=== PATIENT | female | born 1995 | race Caucasian/White ===

== ENCOUNTER 2016-05-20 15:19 | Emergency (ER) | payer OTHER ==
[~2016-05-20] VITALS: Ht 160 cm; Wt 70.0 kg
[~2016-05-20 15:19] MED LIST: [UNRECOGNIZED DRUG - OTHER] SQ
[2016-05-20 15:22] VITALS: BP 124/82; PULSE 122; RESP 16; TEMP 98.3; O2SAT 96
[2016-05-20] MEDS ORDERED: LORazepam 2 MG/ML VIAL IM ONE (15:45)
--- NOTE | 2016-05-20 15:49 | PD ---
HPI Chief Complaint: Seizure Time Seen by Provider: 15:44 Travel History International Travel<30 days: No Contact w/Intl Traveler<30days: No Traveled to known affect area: No History of Present Illness HPI Patient presents with possible seizure. 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 history of diabetes. She does not take any antiseizure medication. Reports that her last seizure was approximately 15 years ago. Denies any trauma. Denies any new chest pain shortness of breath urinary or bowel symptoms. Denies any nausea vomiting diarrhea or fever. Denies . No new rashes. PFSH Past Medical History Autoimmune Disease: Yes Blood Disorders: No Anxiety: No Depression: No Cardiovascular Problems: No Diabetes: Yes Diminished Hearing: No Gastrointestinal Disorders: Yes (CELIAC DISEASE) Genitourinary: No Musculoskeletal: No Neurologic: Yes Psychiatric: No Reproductive: No Respiratory: No Immunizations Current: Yes Migraines: Yes Sickle Cell Disease: No Past Surgical History Genitourinary Surgery: Yes (ENDOSCOPY AND MULTIPLE BIOPSY) Insulin Pump: Yes Other Surgery: Yes Social History Alcohol Use: No Tobacco Use: No Substance Use: No Allergies-Medications (Allergen,Severity, Reaction): Coded Allergies: Barley (Verified Allergy, Severe, CELIAC DISEASE, 05/20/16) Oat (Verified Allergy, Severe, CELIAC DISEASE, 05/20/16) Gile (Verified Allergy, Severe, CELIAC DISEASE, 05/20/16) Wheat (Verified Allergy, Severe, CELIAC DISEASE, 05/20/16) Reported Meds & Prescriptions Reported Meds & Active Scripts Active Macrobid (Nitrofurantoin Monoh/Nitrofur Macro) 100 Mg Cap 100 Mg PO BID 5 Days Reported [humalog via pump] Unit SQ DIRECTED from 0000- 0330= 0.8 units/hr from 0330- 0600= 1.05 units/hr from 0600- 0900= 0.85 units/hr from 0900- 1700= 0.8 units/hr from 1700- 0000= 0.75 units/hr This is what patient's implanted insulin pump is set at per mother Review of Systems General / Constitutional: No: Fever Eyes: No: Visual changes HENT: No: Headaches Cardiovascular: No: Chest Pain or Discomfort Respiratory: No: Shortness of Breath Gastrointestinal: No: Abdominal Pain Genitourinary: No: Dysuria Musculoskeletal: No: Pain Skin: No Rash Neurologic: No: Weakness Psychiatric: No: Depression Endocrine: No: Polydipsia Hematologic/Lymphatic: No: Easy Bruising Physical Exam Narrative GENERAL: Well-nourished, well-developed patient. SKIN: Focused skin assessment warm/dry. HEAD: Normocephalic. EYES: No scleral icterus. No injection or drainage. NECK: Supple, trachea midline. No JVD or lymphadenopathy. CARDIOVASCULAR: Regular rate and rhythm without murmurs, gallops, or rubs. RESPIRATORY: Breath sounds equal bilaterally. No accessory muscle use. GASTROINTESTINAL: Abdomen soft, non-tender, nondistended. MUSCULOSKELETAL: No cyanosis, or edema. BACK: Nontender without obvious deformity. No CVA tenderness. Data Data Last Documented VS Vital Signs Date Time Temp Pulse Resp B/P Pulse Ox O2 Delivery O2 Flow Rate FiO2 05/20/16 18:50 98 18 117/53 98 Room Air 05/20/16 15:[address] Brain W/O Iv Contrast(Rout) (05/20/16 ) Blood Glucose (05/20/16 15:44) Lorazepam Inj (Ativan Inj) (05/20/16 15:45) Complete Blood Count With Diff (05/20/16 15:49) Alcohol (Ethanol) (05/20/16 15:49) Drug Screen, Random Urine (05/20/16 15:49) Ecg Monitoring (05/20/16 15:49) Iv Access Insert/Monitor (05/20/16 15:49) Oximetry (05/20/16 15:49) Comprehensive Metabolic Panel (05/20/16 15:49) Sodium Chloride 0.9% Flush (Ns Flush) (05/20/16 16:00) Urinalysis - C+S If Indicated (05/20/16 15:49) Ed Urine Pregnancytest Poc (05/20/16 16:08) Acetaminophen (Tylenol) (05/20/16 16:45) Sodium Chlor 0.9% 1000 Ml Inj (Ns 1000 M (05/20/16 16:45) Urine Culture (05/20/16 16:20) Ceftriaxone Inj (Rocephin Inj) (05/20/16 17:00) Labs Laboratory Tests Test 05/20/16 05/20/16 15:50 16:20 White Blood Count 5.2 TH/MM3 Red Blood Count 4.71 MIL/MM3 Hemoglobin 14.2 GM/DL Hematocrit 41.8 % Mean Corpuscular Volume 88.6 FL Mean Corpuscular Hemoglobin 30.1 PG Mean Corpuscular Hemoglobin 33.9 % Concent Red Cell Distribution Width 11.9 % Platelet Count 314 TH/MM3 Mean Platelet Volume 8.6 FL Neutrophils (%) (Auto) 70.1 % Lymphocytes (%) (Auto) 22.9 % Monocytes (%) (Auto) 5.6 % Eosinophils (%) (Auto) 0.7 % Basophils (%) (Auto) 0.7 % Neutrophils # (Auto) 3.7 TH/MM3 Lymphocytes # (Auto) 1.2 TH/MM3 Monocytes # (Auto) 0.3 TH/MM3 Eosinophils # (Auto) 0.0 TH/MM3 Basophils # (Auto) 0.0 TH/MM3 CBC Comment DIFF FINAL Differential Comment Sodium Level 143 MEQ/L Potassium Level 3.4 MEQ/L Chloride Level 107 MEQ/L Carbon Dioxide Level 23.7 MEQ/L Anion Gap 12 MEQ/L Blood Urea Nitrogen 11 MG/DL Creatinine 0.77 MG/DL Estimat Glomerular Filtration 96 ML/MIN Rate Random Glucose 57 MG/DL Calcium Level 9.5 MG/DL Total Bilirubin 0.4 MG/DL Aspartate Amino Transf 12 U/L (AST/SGOT) Alanine Aminotransferase 21 U/L (ALT/SGPT) Alkaline Phosphatase 82 U/L Total Protein 7.6 GM/DL Albumin 4.3 GM/DL Ethyl Alcohol Level LESS THAN 3 MG/DL Urine Collection Type CLEAN CATCH Urine Color YELLOW Urine Turbidity SLIGHT Urine pH 5.5 Urine Specific [place] 1.027 Urine Protein 100 mg/dL Urine Glucose (UA) 500 mg/dL Urine Ketones NEG mg/dL Urine Occult Blood LARGE Urine Nitrite NEG Urine Bilirubin NEG Urine Leukocyte Esterase NEG Urine RBC 25-49 /hpf Urine WBC 0-2 /hpf Urine Squamous Epithelial > 8 /hpf Cells Urine Transitional Epithelial 0-5 /hpf Cells Urine Amorphous Sediment MOD Urine Bacteria MANY /hpf Urine Hyaline Casts 0-2 /lpf Microscopic Urinalysis Comment CULTURE INDICATED Urine Collection Time 1620 Urine Opiates Screen NEG Urine Barbiturates Screen NEG Urine Amphetamines Screen NEG Urine Benzodiazepines Screen NEG Urine Cocaine Screen NEG Urine Cannabinoids Screen NEG MDM Medical Decision Making Medical Screen Exam Complete: Yes Emergency Medical Condition: Yes Differential Diagnosis Hypoglycemia, seizure, syncope Narrative Course Assessment and plan discussed with patient and mother bedside. Physician Communication Physician Communication Case discussed with Dr. Matos and care transferred Scripts Nitrofurantoin Monohydrate Macrocrystals (Macrobid)100 Mg [id number] Mg PO BID 5 Days Ref 0 Prov:Luis Matos MD 05/20/16 Ruben Jeong MD May 20, 2016 15:49
[2016-05-20] MEDS ORDERED: SODIUM CHLORIDE 0.9% FLUSH 10 ML FLUSH IVF PRN (16:00)
[2016-05-20 16:09] LABS: AUTOMATED NEUTROPHIL # 3.7 TH/MM3 (1.8-7.7); BASOPHIL % 0.7 % (0.0-2.0); EOSINOPHIL % 0.7 % (0.0-4.0); HEMATOCRIT 41.8 % (35.0-46.0); HEMO FLAGS DIFF FINAL; LYMPH % 22.9 % (9.0-44.0); LYMPHOCYTE # 1.2 TH/MM3 (1.0-4.8); MEAN CELL VOLUME 88.6 FL (80.0-100.0); MEAN CORPUSCULAR HEMOGLOBIN 30.1 PG (27.0-34.0); MEAN CORPUSCULAR HGB CONC 33.9 % (32.0-36.0); MONO % 5.6 % (0.0-8.0); NEUT % 70.1 % (16.0-70.0); PLATELET COUNT 314 TH/MM3 (150-450); RED BLOOD COUNT 4.71 MIL/MM3 (4.00-5.30); RED CELL DISTRIBUTION WIDTH 11.9 % (11.6-17.2); WHITE BLOOD COUNT 5.2 TH/MM3 (4.0-11.0)
[2016-05-20 16:17] LABS: CHLORIDE 107 MEQ/L (98-107); POTASSIUM 3.4 MEQ/L (3.5-5.1); SODIUM (NA) 143 MEQ/L (136-145)
[2016-05-20 16:21] LABS: ANION GAP 12 MEQ/L (5-15); BICARBONATE 23.7 MEQ/L (21.0-32.0); BLOOD UREA NITROGEN 11 MG/DL (7-18)
[2016-05-20 16:24] LABS: ALT (GPT) 21 U/L (9-42); AST (GOT) 12 U/L (16-38); GLOMERULAR FILTRATION RATE 96 ML/MIN (>89)
[2016-05-20 16:25] LABS: TOTAL BILIRUBIN ADULT 0.4 MG/DL (0.2-1.0)
[2016-05-20 16:27] LABS: ALKALINE PHOSPHATASE 82 U/L (45-117)
--- NOTE | 2016-05-20 16:27 | RADHPO ---
EXAM DATE/TIME: 05/20/2016 16:08 [facility] COMPARISON: No previous studies available for comparison. INDICATIONS : Seizure. RADIATION DOSE: 63.96 CTDIvol (mGy) MEDICAL HISTORY : None SURGICAL HISTORY : None. ENCOUNTER: Initial ACUITY: 1 day PAIN SCALE: 4/10 LOCATION: cranial TECHNIQUE: Multiple contiguous axial images were obtained of the head. Using automated exposure control and adj ustment of the mA and/or kV according to patient size, radiation dose was kept as low as reasonably a chievable to obtain optimal diagnostic quality images. FINDINGS: CEREBRUM: The ventricles are normal for age. No evidence of midline shift, mass lesion, hemorrhage or acute in farction. No extra-axial fluid collections are seen. POSTERIOR FOSSA: The cerebellum and brainstem are intact. The 4th ventricle is midline. The cerebellopontine angle i s unremarkable. EXTRACRANIAL: The visualized portion of the orbits is intact. SKULL: The calvaria is intact. No evidence of skull fracture. CONCLUSION: Normal examination for a patient of this age. Raphael Chung MD on May 20, 2016 at 16:25 Board Certified Radiologist. This report was verified electronically.
[2016-05-20 16:31] VITALS: BP 134/74; PULSE 128; RESP 20; O2SAT 98
[2016-05-20 16:36] LABS: BLOOD, URINE LARGE (NEG); GLUCOSE,URINE 500 mg/dL (NEG); KETONE, URINE NEG (NEG); NITRITE,URINE NEG (NEG); PH, URINE 5.5 (5.0-8.5)
--- NOTE | 2016-05-20 16:42 | PD ---
Physical Exam Narrative The patient was initially evaluated by the previous provider and signed out to me at the beginning of my shift pending labs, CT head, and disposition. See his note for further details. Briefly this is a 21-year-old female with insulin dependent diabetes who was brought in by EMS after having a seizure at work. The patient had a seizure several years ago which she reports was hypoglycemia induced. She did bite her tongue. No urinary incontinence. She is complaining of a slight headache. Blood glucose upon arrival to the emergency department was in the 70s. On chemistry it is 57. On my exam the patient is awake and alert with no focal deficits. There are bilateral tongue abrasions with no active bleeding, no lacerations. No signs of trauma otherwise on exam. Initial vital signs show heart rate of 122, blood pressure 124/82, pulse ox 96% on room air, oral temp of 98.3F. CBC is unremarkable. CMP is unremarkable. UA Urine is negative. CT head: Normal examination for patient of this age. The patient was observed in the emergency department for 3 hours. Initial bedside glucose was 59. She was given something to eat and it went to 157 and then 237. Her heart rate improved to 94 after a liter of normal saline IV. She states she is feeling well. Seizure could have been induced by hypoglycemia. At this point she is stable for discharge home with outpatient follow-up with her primary care physician this week. She will continue to monitor her blood sugar at home. She was informed on when to return to the emergency department. Both the patient and the patient's mom verbalize understanding and agreement with plan. Data Data Last Documented VS Vital Signs Date Time Temp Pulse Resp B/P Pulse Ox O2 Delivery O2 Flow Rate FiO2 05/20/16 18:50 98 18 117/53 98 Room Air 05/20/16 15:[address] Brain W/O Iv Contrast(Rout) (05/20/16 ) Blood Glucose (05/20/16 15:44) Lorazepam Inj (Ativan Inj) (05/20/16 15:45) Complete Blood Count With Diff (05/20/16 15:49) Alcohol (Ethanol) (05/20/16 15:49) Drug Screen, Random Urine (05/20/16 15:49) Ecg Monitoring (05/20/16 15:49) Iv Access Insert/Monitor (05/20/16 15:49) Oximetry (05/20/16 15:49) Comprehensive Metabolic Panel (05/20/16 15:49) Sodium Chloride 0.9% Flush (Ns Flush) (05/20/16 16:00) Urinalysis - C+S If Indicated (05/20/16 15:49) Ed Urine Pregnancytest Poc (05/20/16 16:08) Acetaminophen (Tylenol) (05/20/16 16:45) Sodium Chlor 0.9% 1000 Ml Inj (Ns 1000 M (05/20/16 16:45) Urine Culture (05/20/16 16:20) Ceftriaxone Inj (Rocephin Inj) (05/20/16 17:00) Labs Laboratory Tests Test 05/20/16 05/20/16 15:50 16:20 White Blood Count 5.2 TH/MM3 Red Blood Count 4.71 MIL/MM3 Hemoglobin 14.2 GM/DL Hematocrit 41.8 % Mean Corpuscular Volume 88.6 FL Mean Corpuscular Hemoglobin 30.1 PG Mean Corpuscular Hemoglobin 33.9 % Concent Red Cell Distribution Width 11.9 % Platelet Count 314 TH/MM3 Mean Platelet Volume 8.6 FL Neutrophils (%) (Auto) 70.1 % Lymphocytes (%) (Auto) 22.9 % Monocytes (%) (Auto) 5.6 % Eosinophils (%) (Auto) 0.7 % Basophils (%) (Auto) 0.7 % Neutrophils # (Auto) 3.7 TH/MM3 Lymphocytes # (Auto) 1.2 TH/MM3 Monocytes # (Auto) 0.3 TH/MM3 Eosinophils # (Auto) 0.0 TH/MM3 Basophils # (Auto) 0.0 TH/MM3 CBC Comment DIFF FINAL Differential Comment Sodium Level 143 MEQ/L Potassium Level 3.4 MEQ/L Chloride Level 107 MEQ/L Carbon Dioxide Level 23.7 MEQ/L Anion Gap 12 MEQ/L Blood Urea Nitrogen 11 MG/DL Creatinine 0.77 MG/DL Estimat Glomerular Filtration 96 ML/MIN Rate Random Glucose 57 MG/DL Calcium Level 9.5 MG/DL Total Bilirubin 0.4 MG/DL Aspartate Amino Transf 12 U/L (AST/SGOT) Alanine Aminotransferase 21 U/L (ALT/SGPT) Alkaline Phosphatase 82 U/L Total Protein 7.6 GM/DL Albumin 4.3 GM/DL Ethyl Alcohol Level LESS THAN 3 MG/DL Urine Collection Type CLEAN CATCH Urine Color YELLOW Urine Turbidity SLIGHT Urine pH 5.5 Urine Specific [place] 1.027 Urine Protein 100 mg/dL Urine Glucose (UA) 500 mg/dL Urine Ketones NEG mg/dL Urine Occult Blood LARGE Urine Nitrite NEG Urine Bilirubin NEG Urine Leukocyte Esterase NEG Urine RBC 25-49 /hpf Urine WBC 0-2 /hpf Urine Squamous Epithelial > 8 /hpf Cells Urine Transitional Epithelial 0-5 /hpf Cells Urine Amorphous Sediment MOD Urine Bacteria MANY /hpf Urine Hyaline Casts 0-2 /lpf Microscopic Urinalysis Comment CULTURE INDICATED Urine Collection Time 1620 Urine Opiates Screen NEG Urine Barbiturates Screen NEG Urine Amphetamines Screen NEG Urine Benzodiazepines Screen NEG Urine Cocaine Screen NEG Urine Cannabinoids Screen NEG MDM Supervised Visit with [facility]: No Diagnosis Primary Impression: Seizure Additional Impressions: Hypoglycemia UTI (urinary tract infection) Qualified Code: N39.0 - Urinary tract infection without hematuria, site unspecified Referrals: Primary Care Physician 3 days Additional Instruction: Follow-up with your primary care physician this week. Return to the emergency department for worsening symptoms or any other concerns. Scripts Nitrofurantoin Monohydrate Macrocrystals (Macrobid)100 Mg [id number] Mg PO BID 5 Days Ref 0 Prov:Luis Matos MD 05/20/16 Disposition: 01 DISCHARGE HOME Condition: Stable Luis Matos MD May 20, 2016 16:42
[2016-05-20 16:45] LABS: COCAINE, URINE NEG (NEG)
[2016-05-20] MEDS ORDERED: ACETAMINOPHEN 325 MG TAB PO ONE (16:45)
[2016-05-20] MEDS ORDERED: SODIUM CHLOR 0.9% 1000 ML INJ 1,000 ML IV ONE (16:45)
[2016-05-20 16:47] LABS: METHOD OF COLLECTION CLEAN CATCH; URINE COLOR YELLOW (YELLW/STRAW)
[2016-05-20 16:50] LABS: BACTERIA, URINE MANY /hpf; COMMENT (UR) CULTURE INDICATED; COMMENT2 (UR) MUCOUS PRESENT; CULTURE IF INDICATED CULTURE INDICATED; HYALINE CAST, URINE 0-2 /lpf (RARE); SQUAMOUS EPITHELIAL CELL URINE > 8 /hpf (0-5); WBC, URINE 0-2 /hpf (0-5)
[2016-05-20 16:51] LABS: TRANSITIONAL EPI CELLS, URINE 0-5 /hpf
[2016-05-20 16:54] LABS: AMPHETAMINE, URINE NEG (NEG)
[2016-05-20 16:55] LABS: BARBITURATES, URINE NEG (NEG)
[2016-05-20] MEDS ORDERED: cefTRIAXone INJ 1,000 MG in SODIUM CHLORIDE 0.9% INJ 100 ML IV ONE (17:00)
[2016-05-20 18:24] VITALS: BP 115/73; PULSE 108; RESP 18; O2SAT 98
[2016-05-20 18:50] VITALS: BP 117/53; PULSE 98; RESP 18; O2SAT 98
[2016-05-20] MEDS ORDERED: MACR100C2 PO (18:54)
== END 2016-05-20 19:10 | disposition home or self-care (01) ==
LOC: PHED 15:19
DX: R56.9 Unspecified convulsions (principal); E11.65 Type 2 diabetes mellitus with hyperglycemia; R51 Headache; K90.0 Celiac disease; Z79.4 Long term (current) use of insulin; Z79.899 Other long term (current) drug therapy
CPT/HCPCS: 70450; 80053; 80307; 81001; 84703; 85025; 87086; 96361; 96365; 96372; 99284; J0696; J2060; J7030